=== PATIENT | male | born 1980 ===

== ENCOUNTER 2018-05-06 10:29 | Emergency (ER) | payer OTHER ==
[2018-05-06] MEDS ORDERED: Lidocaine 2% Inj (20ml) INFIL STA (10:55)
--- NOTE | 2018-05-06 10:58 | ED PDOC ---
HPI: General Adult Time Seen by Provider: 05/06/18 10:56 Chief Complaint (Nursing): Abnormal Skin Integrity Chief Complaint (Provider): RIGHT AXILLARY SWELLING/ERYTHEMA History Per: Patient (37 Y/O MALE HERE WITH RIGHT AXILLARY SWELLING/PAIN WORSENING. NOTES CHILLS LAST NIGHT. NO FEVER/VOMITING/ETC. NOTES THAT ABSCESS HAS BEEN DRAINING SLIGHTLY YESTERDAY.) Past Medical History Reviewed: Historical Data, Nursing Documentation, Vital Signs Vital Signs: Last Vital Signs Temp 98.2 F 05/06/18 10:37 Pulse 82 05/06/18 10:37 Resp 18 05/06/18 10:37 BP 135/93 H 05/06/18 10:37 Pulse Ox 98 05/06/18 10:37 - Family History Family History: States: No Known Family Hx - Home Medications Home Medications: Ambulatory Orders Medication Instructions Recorded Cephalexin [Keflex] 500 mg PO QID #28 capsule 05/06/18 Ibuprofen [Motrin] 600 mg PO Q8 PRN #21 tab 05/06/18 Sulfamethoxazole/Trimethoprim 2 tab PO BID #28 tab 05/06/18 [Bactrim DS 800 mg-160 mg] - Allergies Allergies/Adverse Reactions: Allergies Allergy/AdvReac Type Severity Reaction Status Date / Time No Known Allergies Allergy Verified 05/06/18 10:37 Review of Systems ROS Statement: Except As Marked, All Systems Reviewed And Found Negative Physical Exam - Reviewed Nursing Documentation Reviewed: Yes Vital Signs Reviewed: Yes - Physical Exam Appears: Positive for: Well, Non-toxic, No Acute Distress Head Exam: Positive for: ATRAUMATIC, NORMAL INSPECTION, NORMOCEPHALIC Skin: Positive for: Warm. Negative for: Normal Color (5CM REGION OF INDURATION AND ERYTHEMA RIGHT AXILLARY REGION WITH EXTENSION DISTALLY ALONG ARM.) Eye Exam: Positive for: EOMI, Normal appearance, PERRL ENT: Positive for: Normal ENT Inspection Neck: Positive for: Normal, Painless ROM Cardiovascular/Chest: Positive for: Regular Rate, Rhythm Respiratory: Positive for: CNT, Normal Breath Sounds Gastrointestinal/Abdominal: Positive for: Normal Exam, Soft Back: Positive for: Normal Inspection Extremity: Positive for: Normal ROM Neurologic/Psych: Positive for: Alert, Oriented - ECG O2 Sat by Pulse Oximetry: 98 - Progress ED Course And Treament: VANCOMYCIN 1 GM IV X 1 DOSE TORADOL 15 MG IV X 1 DOSE Procedures - Time-Out Type of Procedure: ABSCESS I & d - Incision and Drainage Site: RIGHT AXILLARY REGION Blade Size: 16 I & D Procedure: betadine prep Progress: MINIMAL PRULULENT DISCHARGE EXPRESSED. WOUND CX SENT PACKING PLACED IN WOUND. Disposition - Clinical Impression Clinical Impression: Abscess, Cellulitis - Patient ED Disposition Is Patient to be Admitted: No - Disposition Disposition: Routine/Home Disposition Time: 12:38 Condition: FAIR Additional Instructions: F/U WITH ED IN 2 TO 3 DAYS FOR REMOVAL OF STERILE PACKING Prescriptions: Cephalexin [Keflex] 500 mg PO QID #28 capsule Ibuprofen [Motrin] 600 mg PO Q8 PRN #21 tab PRN Reason: Pain, Moderate (4-7) Sulfamethoxazole/Trimethoprim [Bactrim DS 800 mg-160 mg] 2 tab PO BID #28 tab Instructions: Skin Abscess, Cellulitis (Skin Infection), Adult (DC) Forms: [facility] ED School/Work Excuse Procedure: Wound Repair - Time Performed Time Performed: 12:35 - Time Out Time Out: Site verified - Consent Obtained Consent obtained: Verbal
[2018-05-06] MEDS ORDERED: Vancomycin 1 g Inj ONE (11:10)
[2018-05-06] MEDS ORDERED: Lidocaine PF 2% (5 ml) Inj (For Cardiac Arrhy) ONE (11:11)
[2018-05-06] MEDS ORDERED: Povidone Iodine Oint 10% Foilpak UD ONE (12:09)
[2018-05-06 13:30] VITALS: BP 132/80; PULSE 81; RESP 20; TEMP 98.3; O2SAT 99
== END 2018-05-06 13:20 | disposition home or self-care (01) ==
LOC: H.ER 10:29
DX: L02.411 Cutaneous abscess of right axilla (principal)
CPT/HCPCS: 10060; 87070; 87181; 96365; 96375; 99283; J1885